=== PATIENT | female | born 1960 | race Caucasian/White ===

== ENCOUNTER 2018-02-16 17:42 | Emergency (ER) | payer BC, OTHER ==
[2018-02-16 18:15] VITALS: BP 140/66
--- NOTE | 2018-02-16 19:02 | EDM.PDOC ---
ED HPI GENERAL MEDICAL PROBLEM - General Chief Complaint: ENT Problem Stated Complaint: THRUSH IN MOUTH AND RASH ON BODY Time Seen by Provider: 02/16/18 19:01 Source of Information: Reports: Patient History Limitations: Reports: No Limitations - History of Present Illness INITIAL COMMENTS - FREE TEXT/NARRATIVE: HISTORY AND PHYSICAL: History of present illness: 57-year-old female presenting to the emergency room with chief complaint of rash and sore throat. Patient states that today she woke up with a sore throat and rash. She does mention that her granddaughter has roseola but did not think that she could get this from her. She currently denies any chest pain, palpitations, shortness breath, syncopal episodes, or focal neurologic episodes. Review of systems: As per history of present illness and below otherwise all systems reviewed and negative. Past medical history: As per history of present illness and as reviewed below otherwise noncontributory. Surgical history: As per history of present illness and as reviewed below otherwise noncontributory. Social history: No reported history of drug or alcohol abuse. Family history: As per history of present illness and as reviewed below otherwise noncontributory. Physical exam: HEENT: Atraumatic, normocephalic, pupils reactive, negative for conjunctival pallor or scleral icterus, mucous membranes moist, throat clear, neck supple, nontender, trachea midline. Lungs: Clear to auscultation, breath sounds equal bilaterally, chest nontender. Heart: S1S2, regular, negative for clicks, rubs, or JVD. Abdomen: Soft, nondistended, nontender. Negative for masses or hepatosplenomegaly. Negative for costovertebral tenderness. Pelvis: Stable nontender. Genitourinary: Deferred. Rectal: Deferred. Extremities: Atraumatic, negative for cords or calf pain. Neurovascular unremarkable. Neuro: Awake, alert, oriented. Cranial nerves II through XII unremarkable. Cerebellum unremarkable. Motor and sensory unremarkable throughout. Exam nonfocal. Diagnostics: Rapid strep Therapeutics: [] Impression: Roseola Plan: Talked with patient that she most likely has Roseola like her Grand daughter and should follow up with her PCP Dr. Rios. Definitive disposition and diagnosis as appropriate pending reevaluation and review of above. mouth Pain Score (Numeric/FACES): 5 - Related Data Allergies Allergy/AdvReac Type Severity Reaction Status Date / Time No Known Allergies Allergy Verified 02/16/18 18:15 Home Meds: Home Meds Allopurinol 300 mg PO DAILY 10/03/15 [History] Ascorbic Acid [Vitamin C] 1,000 mg PO DAILY 10/03/15 [History] Cholecalciferol (Vitamin D3) [Vitamin D3] 2,000 unit PO DAILY 10/03/15 [History] DULoxetine [Cymbalta] 60 mg PO DAILY 10/03/15 [History] Hydrochlorothiazide 25 mg PO DAILY 10/03/15 [History] Iron 18 mg PO DAILY 10/03/15 [History] Labetalol HCl [Labetalol] 100 mg PO DAILY 10/03/15 [History] Multivit-Min/Folic Acid/Vit K1 [Multi For Her 50 Plus Softgel] 1 each PO DAILY 10/03/15 [History] [place]-3/DHA/Epa/Fish Oil [Fish Oil] 500 mg PO DAILY 10/03/15 [History] Potassium Citrate [Potassium Citrate ER] 15 meq PO DAILY 10/03/15 [History] Furosemide [Lasix] 80 mg PO DAILY 02/16/18 [History] Levothyroxine 75 mcg PO ACBREAKFAST 02/16/18 [History] Silver Sulfadiazine 50 gm TP ASDIRECTED 02/16/18 [History] Turmeric Root Extract [Turmeric] 500 mg PO DAILY 02/16/18 [History] buPROPion HCl [Wellbutrin Xl] 300 mg PO DAILY 02/16/18 [History] oxyCODONE ER [OxyCONTIN] 10 mg PO ASDIRECTED 02/16/18 [History] Past Medical History Cardiovascular History: Reports: Hypertension Gastrointestinal History: Reports: Other (See Below) Other Gastrointestinal History: gastric bypass MEDICAL DEVICE ENGINEER History: Reports: , Other (See Below) Other MEDICAL DEVICE ENGINEER History: c-sections Psychiatric History: Reports: Anxiety, Depression Endocrine/Metabolic History: Reports: Hypothyroidism - Infectious Disease History Infectious Disease History: Reports: Chicken Pox, Shingles Social & Family History - Tobacco Use Smoking Status *Q: Never Smoker - Caffeine Use Caffeine Use: Reports: Tea - Recreational Drug Use Recreational Drug Use: No ED ROS GENERAL - Review of Systems Review Of Systems: ROS reveals no pertinent complaints other than HPI. ED EXAM, GENERAL - Physical Exam Exam: See Below Course - Vital Signs Last Recorded V/S: Last Vital Signs Temp 98.3 F 02/16/18 18:13 Pulse 88 02/16/18 18:13 Resp 16 02/16/18 18:13 BP 140/66 02/16/18 18:13 Pulse Ox 98 02/16/18 18:13 - Orders/Labs/Meds Orders: Active Orders 24 hr Category Date Time Status CULTURE STREP A CONFIRMATION [RM] Stat Lab 02/16/18 19:05 Results STREP SCRN A RAPID W CULT CONF [RM] Stat Lab 02/16/18 19:05 Ordered Departure - Departure Time of Disposition: 19:37 Disposition: Home, Self-Care 01 Condition: Good Clinical Impression: Roseola - Discharge Information Referrals: PCP,None [Primary Care Provider] - Forms: ED Department Discharge Additional Instructions: My general discharge The following information is given to patients seen in the emergency department who are being discharged to home. This information is to outline your options for follow-up care. We provide all patients seen in our emergency department with a follow-up referral. The need for follow-up, as well as the timing and circumstances, are variable depending upon the specifics of your emergency department visit. If you don't have a primary care physician on staff, we will provide you with a referral. We always advise you to contact your personal physician following an emergency department visit to inform them of the circumstance of the visit and for follow-up with them and/or the need for any referrals to a consulting specialist. The emergency department will also refer you to a specialist when appropriate. This referral assures that you have the opportunity for follow-up care with a specialist. All of these measure are taken in an effort to provide you with optimal care, which includes your follow-up. Under all circumstances we always encourage you to contact your private physician who remains a resource for coordinating your care. When calling for follow-up care, please make the office aware that this follow-up is from your recent emergency room visit. If for any reason you are refused follow-up, please contact the [facility] Emergency Department at and asked to speak to the emergency department charge nurse. Please follow-up with your primary care physician as we discussed. - My Orders Last 24 Hours: My Active Orders 02/16/18 19:05 CULTURE STREP A CONFIRMATION [RM] Stat STREP SCRN A RAPID W CULT CONF [RM] Stat - Assessment/Plan Last 24 Hours: My Active Orders 02/16/18 19:05 CULTURE STREP A CONFIRMATION [RM] Stat STREP SCRN A RAPID W CULT CONF [RM] Stat
== END 2018-02-16 19:49 | disposition home or self-care (01) ==
LOC: MW.ED 17:42
DX: B09 Unspecified viral infection characterized by skin and mucous membrane lesions (principal); I10 Essential (primary) hypertension; Z79.899 Other long term (current) drug therapy
CPT/HCPCS: 87081; 87880-QW; 99282; 99283

== ENCOUNTER 2018-04-10 13:59 | Emergency (ER) | payer MEDICARE, BC ==
[2018-04-10] MEDS ORDERED: Sodium Chloride 0.9% 1,000 ML IV ONE (14:44)
--- NOTE | 2018-04-10 14:44 | EDM.PDOC ---
ED HPI GENERAL MEDICAL PROBLEM - General Chief Complaint: Neuro Symptoms/Deficits Stated Complaint: HALLUCINATIONS Time Seen by Provider: 04/10/18 14:03 Source of Information: Reports: Patient History Limitations: Reports: No Limitations - History of Present Illness INITIAL COMMENTS - FREE TEXT/NARRATIVE: HISTORY AND PHYSICAL: History of present illness: Patient is a 57-year-old female who presents to the emergency room with concerns of visual hallucinations. She states she has been on multiple antibiotics for the treatment of a cellulitis of her left posterior thigh. Approximately 2 weeks ago she started having visual hallucinations intermittently. She did see her primary care provider, Dr. Neal Rios, approximately one week ago. She did inform him of the concerns of hallucinations , he did take her off some of her antibiotics in hopes that this would cease the problem. She states that her symptoms have not improved. States she has felt dehydrated as she has not been eating and drinking as much as she routinely does. She states that these hallucinations are obviously not real, and she can identify. She is seeing dinosaurs in people's yards. She has no previous mental health issues. Denies any drug or alcohol abuse. She denies having any thoughts of self-harm or harming others. She denies any fever, chills, chest pain, shortness of breath or cough. Denies any abdominal pain, nausea, vomiting, diarrhea, constipation or dysuria. Past medical history of hypertension, depression, hypothyroidism and gastric bypass surgery. Review of systems: As per history of present illness and below otherwise all systems reviewed and negative. Past medical history: As per history of present illness and as reviewed below otherwise noncontributory. Surgical history: As per history of present illness and as reviewed below otherwise noncontributory. Social history: No reported history of drug or alcohol abuse. Family history: As per history of present illness and as reviewed below otherwise noncontributory. Physical exam: General: Well developed and morbidly obese 57-year-old female. Alert and oriented. Nontoxic appearing and in no acute distres HEENT: Atraumatic, normocephalic, pupils equal and reactive bilaterally, negative for conjunctival pallor or scleral icterus, mucous membranes moist, throat clear, neck supple, nontender, trachea midline. No drooling or trismus noted. No meningeal signs Lungs: Clear to auscultation, breath sounds equal bilaterally, chest nontender. Heart: S1S2, regular rate and rhythm without overt murmur Abdomen: Soft, obese, nontender. Negative for masses. Negative for costovertebral tenderness. Pelvis: Stable nontender. Genitourinary: Deferred. Rectal: Deferred. Skin: Patient has a yeast infection of the left and right groin involving the mons pubis and pannus flap bilaterally. She does have a pressure ulcer noted to the coccyx area, blanchable. Large cellulitic area to the left posterior thigh with excessively dry skin noted to the area as well. Extremities: Atraumatic, negative for cords or calf pain. Neurovascular unremarkable. Neuro: Awake, alert, oriented. Cranial nerves II through XII unremarkable. Cerebellum unremarkable. Motor and sensory unremarkable throughout. Exam nonfocal. Notes: Patient is wheelchair bound and receives care by her . She has been seeing Dr. Neal Rios for treatment of pressure ulcer to her tailbone, bilateral pannus/groin yeast infection, and cellulitis of the left posterior thigh. She states she has no current concerns about the cellulitis or ulcerated area. Lab work is unremarkable at this time. This information was shared with the patient and family members. I offered admission at this time, she declined. I strongly encouraged them to follow-up with their primary care provider for further evaluation of her current medications in regards to the hallucinations. They voice understanding and are agreeable to plan of care. Denies any further questions or concerns at this time. Diagnostics: CBC, CMP, UA, Ammonia, CXR, Blood Culture, lactic acid Therapeutics: IV fluids Prescription: Impression: Encounter for medical screening exam Hallucinations Plan: 1. Follow-up with your primary care provider for further evaluation of your current medications in regards to your hallucinations. 2. Return to the ED as needed and as discussed. Definitive disposition and diagnosis as appropriate pending reevaluation and review of above. - Related Data Allergies Allergy/AdvReac Type Severity Reaction Status Date / Time No Known Allergies Allergy Verified 04/10/18 14:14 Home Meds: Home Meds Allopurinol 300 mg PO DAILY 10/03/15 [History] Ascorbic Acid [Vitamin C] 1,000 mg PO DAILY 10/03/15 [History] Cholecalciferol (Vitamin D3) [Vitamin D3] 2,000 unit PO DAILY 10/03/15 [History] DULoxetine [Cymbalta] 60 mg PO DAILY 10/03/15 [History] Hydrochlorothiazide 25 mg PO DAILY 10/03/15 [History] Iron 18 mg PO DAILY 10/03/15 [History] Labetalol HCl [Labetalol] 100 mg PO DAILY 10/03/15 [History] Multivit-Min/Folic Acid/Vit K1 [Multi For Her 50 Plus Softgel] 1 each PO DAILY 10/03/15 [History] [place]-3/DHA/Epa/Fish Oil [Fish Oil] 500 mg PO DAILY 10/03/15 [History] Potassium Citrate [Potassium Citrate ER] 15 meq PO DAILY 10/03/15 [History] Furosemide [Lasix] 80 mg PO DAILY 02/16/18 [History] Levothyroxine 75 mcg PO ACBREAKFAST 02/16/18 [History] Silver Sulfadiazine 50 gm TP ASDIRECTED 02/16/18 [History] Turmeric Root Extract [Turmeric] 500 mg PO DAILY 02/16/18 [History] buPROPion HCl [Wellbutrin Xl] 300 mg PO DAILY 02/16/18 [History] oxyCODONE ER [OxyCONTIN] 10 mg PO ASDIRECTED 02/16/18 [History] Cephalexin [Keflex] 1 tab PO QID 04/10/18 [History] Past Medical History Cardiovascular History: Reports: Hypertension Gastrointestinal History: Reports: Other (See Below) Other Gastrointestinal History: gastric bypass SPARE HAND History: Reports: , Other (See Below) Other SPARE HAND History: c-sections Musculoskeletal History: Reports: Arthritis, Gout Psychiatric History: Reports: Anxiety, Depression Endocrine/Metabolic History: Reports: Hypothyroidism Dermatologic History: Reports: Cellulitis - Infectious Disease History Infectious Disease History: Reports: MRSA Social & Family History - Family History Family Medical History: Unobtainable - Tobacco Use Smoking Status *Q: Never Smoker Second Hand Smoke Exposure: No - Caffeine Use Caffeine Use: Reports: Soda - Recreational Drug Use Recreational Drug Use: No ED ROS GENERAL - Review of Systems Review Of Systems: ROS reveals no pertinent complaints other than HPI. ED EXAM, GENERAL - Physical Exam Exam: See Below (See dictation) Course - Vital Signs Last Recorded V/S: Last Vital Signs Temp 97.6 F 04/10/18 14:09 Pulse 82 04/10/18 14:09 Resp 18 04/10/18 14:09 BP 172/84 H 04/10/18 14:09 Pulse Ox 96 04/10/18 14:09 - Orders/Labs/Meds Orders: Active Orders 24 hr Category Date Time Status Chest 1V Frontal [CR] Stat Exams 04/10/18 14:37 Taken CULTURE BLOOD [BC] Stat Lab 04/10/18 15:20 Received CULTURE BLOOD [BC] Stat Lab 04/10/18 15:55 Received CULTURE WOUND [RM] Stat Lab 04/10/18 15:15 Received UA W/MICROSCOPIC [URIN] Stat Lab 04/10/18 14:37 Ordered Blood Culture x2 Reflex Set [OM.PC] Stat Oth 04/10/18 14:37 Ordered Labs: Laboratory Tests 04/10/18 04/10/18 04/10/18 Range/Units 15:20 15:20 15:20 WBC 8.76 (4.0-11.0) K/uL RBC 3.97 L (4.30-5.90) M/uL Hgb 12.0 (12.0-16.0) g/dL Hct 36.6 (36.0-46.0) % MCV 92.2 (80.0-98.0) fL MCH 30.2 (27.0-32.0) pg MCHC 32.8 (31.0-37.0) g/dL RDW Std Deviation 47.7 (28.0-62.0) fl RDW Coeff of Serena 14 (11.0-15.0) % Plt Count 240 (150-400) K/uL MPV 9.80 (7.40-12.00) fL Neut % (Auto) 73.4 (48.0-80.0) % Lymph % (Auto) 14.2 L (16.0-40.0) % [place] % (Auto) 10.0 (0.0-15.0) % Eos % (Auto) 2.3 (0.0-7.0) % Baso % (Auto) 0.1 (0.0-1.5) % Neut # (Auto) 6.4 H (1.4-5.7) K/uL Lymph # (Auto) 1.2 (0.6-2.4) K/uL [place] # (Auto) 0.9 H (0.0-0.8) K/uL Eos # (Auto) 0.2 (0.0-0.7) K/uL Baso # (Auto) 0.0 (0.0-0.1) K/uL Nucleated RBC % 0.0 /100WBC Nucleated RBCs # 0 K/uL Lactate 1.1 (0.20-2.00) mmol/L Sodium 139 (136-145) mmol/L Potassium 3.8 (3.5-5.1) mmol/L Chloride 101 (98-107) mmol/L Carbon Dioxide 29.6 (21.0-32.0) mmol/L BUN 10 (7.0-18.0) mg/dL Creatinine 0.7 (0.6-1.0) mg/dL Est Cr Clr Drug Dosing 64.46 mL/min Estimated GFR (MDRD) > 60.0 ml/min Glucose 105 (74-106) mg/dL Calcium 9.3 (8.5-10.1) mg/dL Total Bilirubin 0.8 (0.2-1.0) mg/dL AST 23 (15-37) IU/L ALT 11 L (14-63) IU/L Alkaline Phosphatase 79 (46-116) U/L Ammonia (19-54) ug/dL Total Protein 7.1 (6.4-8.2) g/dL Albumin 3.3 L (3.4-5.0) g/dL Globulin 3.8 H (2.0-3.5) g/dL Albumin/Globulin Ratio 0.9 L (1.3-2.8) 04/10/18 Range/Units 15:20 WBC (4.0-11.0) K/uL RBC (4.30-5.90) M/uL Hgb (12.0-16.0) g/dL Hct (36.0-46.0) % MCV (80.0-98.0) fL MCH (27.0-32.0) pg MCHC (31.0-37.0) g/dL RDW Std Deviation (28.0-62.0) fl RDW Coeff of Serena (11.0-15.0) % Plt Count (150-400) K/uL MPV (7.40-12.00) fL Neut % (Auto) (48.0-80.0) % Lymph % (Auto) (16.0-40.0) % [place] % (Auto) (0.0-15.0) % Eos % (Auto) (0.0-7.0) % Baso % (Auto) (0.0-1.5) % Neut # (Auto) (1.4-5.7) K/uL Lymph # (Auto) (0.6-2.4) K/uL [place] # (Auto) (0.0-0.8) K/uL Eos # (Auto) (0.0-0.7) K/uL Baso # (Auto) (0.0-0.1) K/uL Nucleated RBC % /100WBC Nucleated RBCs # K/uL Lactate (0.20-2.00) mmol/L Sodium (136-145) mmol/L Potassium (3.5-5.1) mmol/L Chloride (98-107) mmol/L Carbon Dioxide (21.0-32.0) mmol/L BUN (7.0-18.0) mg/dL Creatinine (0.6-1.0) mg/dL Est Cr Clr Drug Dosing mL/min Estimated GFR (MDRD) ml/min Glucose (74-106) mg/dL Calcium (8.5-10.1) mg/dL Total Bilirubin (0.2-1.0) mg/dL AST (15-37) IU/L ALT (14-63) IU/L Alkaline Phosphatase (46-116) U/L Ammonia 25 (19-54) ug/dL Total Protein (6.4-8.2) g/dL Albumin (3.4-5.0) g/dL Globulin (2.0-3.5) g/dL Albumin/Globulin Ratio (1.3-2.8) Meds: Medications Discontinued Medications Generic Name Dose Route Start Last Admin Trade Name Freq PRN Reason Stop Dose Admin Sodium Chloride 1,000 mls @ 999 mls/hr 04/10/18 14:44 04/10/18 15:25 Normal Saline IV 04/10/18 15:44 999 mls/hr STAT ONE Administration Departure - Departure Time of Disposition: 17:40 Disposition: Home, Self-Care 01 Clinical Impression: Encounter for medical screening examination, Hallucinations, visual - Discharge Information Referrals: Neal Rios MD [Primary Care Provider] - Forms: ED Department Discharge Additional Instructions: The following information is given to patients seen in the emergency department who are being discharged to home. This information is to outline your options for follow-up care. We provide all patients seen in our emergency department with a follow-up referral. The need for follow-up, as well as the timing and circumstances, are variable depending upon the specifics of your emergency department visit. If you don't have a primary care physician on staff, we will provide you with a referral. We always advise you to contact your personal physician following an emergency department visit to inform them of the circumstance of the visit and for follow-up with them and/or the need for any referrals to a consulting specialist. The emergency department will also refer you to a specialist when appropriate. This referral assures that you have the opportunity for follow-up care with a specialist. All of these measure are taken in an effort to provide you with optimal care, which includes your follow-up. Under all circumstances we always encourage you to contact your private physician who remains a resource for coordinating your care. When calling for follow-up care, please make the office aware that this follow-up is from your recent emergency room visit. If for any reason you are refused follow-up, please contact the [facility] Emergency Department at and asked to speak to the emergency department charge nurse. [facility] [address] [place] [address] [place] [address] 1. Follow-up with your primary care provider for further evaluation of your current medications in regards to your hallucinations. 2. Return to the ED as needed and as discussed. - My Orders Last 24 Hours: My Active Orders 04/10/18 14:37 Chest 1V Frontal [CR] Stat UA W/MICROSCOPIC [URIN] Stat Blood Culture x2 Reflex Set [OM.PC] Stat 04/10/18 15:15 CULTURE WOUND [RM] Stat 04/10/18 15:20 CULTURE BLOOD [BC] Stat 04/10/18 15:55 CULTURE BLOOD [BC] Stat - Assessment/Plan Last 24 Hours: My Active Orders 04/10/18 14:37 Chest 1V Frontal [CR] Stat UA W/MICROSCOPIC [URIN] Stat Blood Culture x2 Reflex Set [OM.PC] Stat 04/10/18 15:15 CULTURE WOUND [RM] Stat 04/10/18 15:20 CULTURE BLOOD [BC] Stat 04/10/18 15:55 CULTURE BLOOD [BC] Stat
[2018-04-10 15:59] LABS: CHLORIDE,CL 101 mmol/L (98-107); SODIUM,NA 139 mmol/L (136-145)
[2018-04-10 18:08] VITALS: BP 183/87
--- NOTE | 2018-04-11 10:57 | CR ---
EXAM DATE: 04/10/18 PATIENT'S AGE: 57 Patient: ALLAN BAEZ Facility: [place], [place] Site . Site : [id number] Study: XRay Chest [id number] 4:48:47 PM Ordering Physician: Doctor Gautam Final Report: INDICATION: Hallucinations TECHNIQUE: Chest 1 view. COMPARISON: None FINDINGS: Cardiovascular and mediastinum: Heart size and vasculature are normal in caliber and appearance. Mediastinum is within normal limits. Lungs and pleural space: Low lung volumes. Lungs are clear. No sign of infiltrate or mass. No sign of pleural effusion. No pneumothorax. Bones and soft tissues: No significant findings. IMPRESSION: Low lung volumes. No gross acute pulmonary or cardiac abnormalities. Dictated by Erick Hayden MD @ 04/10/2018 5:19:47 PM Dictated by: Erick Hayden MD @ 04/10/2018 17:19:51 (Electronic Signature) Report Signed by Proxy. [facility] SYSTEMDarcie
== END 2018-04-10 18:00 | disposition home or self-care (01) ==
LOC: MW.ED 13:59
DX: R44.1 Visual hallucinations (principal); I10 Essential (primary) hypertension; Z79.899 Other long term (current) drug therapy
CPT/HCPCS: 36415; 71045; 80053; 82140; 83605; 85025; 87040; 87070; 96360; 99285; J7040

== ENCOUNTER 2022-09-04 03:46 | Emergency (ER) | payer MEDICARE ==
[2022-09-04 04:51] LABS: CORONAVIRUS COVID-19 NAA POSITIVE (NEGATIVE); INFLUENZA A NAA NEGATIVE (NEGATIVE); INFLUENZA B NAA NEGATIVE (NEGATIVE)
[2022-09-04] MEDS ORDERED: Dexamethasone 10 MG/ML SDV IVPUSH ONE (04:53)
[2022-09-04 05:13] LABS: CARBON DIOXIDE,CO2 28.4 mmol/L (21.0-32.0); POTASSIUM,K 4.6 mmol/L (3.5-5.1)
[2022-09-04] MEDS ORDERED: Aspirin 81 MG Tab.Chew PO ONE (06:49)
[2022-09-04] MEDS ORDERED: Enoxaparin 150 MG/1 ML Syringe SUBCUT ONE (06:50)
[2022-09-04 12:49] VITALS: BP 158/93; PULSE 101
== END 2022-09-04 13:33 ==
LOC: MW.ED 03:46
DX: U07.1 COVID-19 (principal); E66.01 Morbid (severe) obesity due to excess calories; I10 Essential (primary) hypertension; E03.9 Hypothyroidism, unspecified; M10.9 Gout, unspecified; Z79.899 Other long term (current) drug therapy; Z68.45 Body mass index [BMI] 70 or greater, adult
CPT/HCPCS: 0240U; 36415; 71045; 80053; 80305; 81003; 82803; 83880; 84484; 85025; 86140; 93005; 96372; 96374; 99285; A9270; J1100; J1650

== ENCOUNTER 2022-11-08 19:03 | Emergency (ER) | payer MEDICARE ==
[2022-11-08] MEDS ORDERED: Sodium Chloride 0.9% 10 ML Syringe FLUSH PRN (23:03)
[2022-11-08] MEDS ORDERED: Sodium Chloride 0.9% 2.5 ML Syringe FLUSH PRN (23:03)
[2022-11-09 01:06] LABS: CARBON DIOXIDE,CO2 26.7 mmol/L (21.0-32.0); POTASSIUM,K 4.2 mmol/L (3.5-5.1)
[2022-11-09] MEDS ORDERED: Sodium Chloride 0.9% 1,000 ML IV ONE ×2 (01:16)
[2022-11-09 05:03] VITALS: BP 126/57; PULSE 67
== END 2022-11-09 05:03 | disposition home or self-care (01) ==
LOC: MW.ED 19:03
DX: I95.9 Hypotension, unspecified (principal); E86.0 Dehydration; I10 Essential (primary) hypertension; E03.9 Hypothyroidism, unspecified; Z79.899 Other long term (current) drug therapy
CPT/HCPCS: 36415; 80053; 81003; 85025; 96360; 96361; 99284; 99284-25; J3490; J7030

== ENCOUNTER 2022-12-20 09:09 | Emergency (ER) | payer MEDICARE ==
[2022-12-20] MEDS ORDERED: Sodium Chloride 0.9% 2.5 ML Syringe FLUSH PRN (10:15)
[2022-12-20] MEDS ORDERED: Sodium Chloride 0.9% 10 ML Syringe FLUSH PRN (10:15)
[2022-12-20 11:08] LABS: BASOPHILS PERCENT AUTO 0.3 % (0.0-1.5); EOSINOPHILS ABSOLUTE AUTO 0.4 K/uL (0.0-0.7); EOSINOPHILS PERCENT AUTO 3.8 % (0.0-7.0); HEMATOCRIT 37.3 % (36.0-46.0); HEMOGLOBIN 11.9 g/dL (12.0-16.0); LYMPHOCYTES ABSOLUTE AUTO 1.4 K/uL (0.6-2.4); LYMPHOCYTES PERCENT AUTO 14.8 % (16.0-40.0); MEAN CORPUSCULAR HEMOGLOBIN 31.1 pg (27.0-32.0); MEAN CORPUSCULAR HGB CONC 31.9 g/dL (31.0-37.0); MEAN CORPUSCULAR VOLUME 97.4 fL (80.0-98.0); MONOCYTES ABSOLUTE AUTO 0.8 K/uL (0.0-0.8); MONOCYTES PERCENT AUTO 8.8 % (0.0-15.0); NEUTROPHILS ABSOLUTE AUTO 6.8 K/uL (1.4-5.7); NEUTROPHILS PERCENT AUTO 72.3 % (48.0-80.0); NRBC ABSOLUTE 0 K/uL; PLATELET COUNT,PLT 202 K/uL (150-400); RED BLOOD CELL COUNT 3.83 M/uL (4.30-5.90); WHITE BLOOD CELL COUNT,WBC 9.45 K/uL (4.0-11.0)
[2022-12-20 11:40] LABS: A/G RATIO 0.6 (0.9-1.6); ALBUMIN 2.9 g/dL (3.4-5.0); BILIRUBIN TOTAL 0.6 mg/dL (0.2-1.0); CALCIUM 9.4 mg/dL (8.5-10.1); CREATININE 0.7 mg/dL (0.6-1.0); EST CRCL DRUG DOSING (CG) 60.62 mL/min; POTASSIUM,K 3.8 mmol/L (3.5-5.1); PROTEIN TOTAL,TP 7.5 g/dL (6.4-8.2)
[2022-12-20 12:13] VITALS: BP 164/65; PULSE 87
== END 2022-12-20 11:53 | disposition home or self-care (01) ==
LOC: MW.ED 09:09
DX: R06.02 Shortness of breath (principal); R05.9 Cough, unspecified; R53.83 Other fatigue; I11.0 Hypertensive heart disease with heart failure; I50.9 Heart failure, unspecified; E03.9 Hypothyroidism, unspecified; Z79.899 Other long term (current) drug therapy; Z86.16 Personal history of COVID-19
CPT/HCPCS: 36415; 71045; 71045-26; 80053; 84484; 85025; 93005; 99285

== ENCOUNTER 2023-05-14 14:50 | Emergency (ER) | payer MEDICARE, OTHER ==
[2023-05-14] MEDS ORDERED: Sodium Chloride 0.9% 2.5 ML Syringe FLUSH PRN (15:43)
[2023-05-14] MEDS ORDERED: Sodium Chloride 0.9% 10 ML Syringe FLUSH PRN (15:43)
[2023-05-14 15:48] VITALS: BP 158/62
[2023-05-14] MEDS ORDERED: Albuterol/Ipratropium 3.0-0.5 MG/3 ML Neb Soln NEB ONE (15:57)
[2023-05-14 16:22] LABS: BASOPHILS ABSOLUTE AUTO 0.04 K/uL (0.00-0.20); BASOPHILS PERCENT AUTO 0.4 % (0.0-1.0); EOSINOPHILS ABSOLUTE AUTO 0.31 K/uL (0.00-0.45); EOSINOPHILS PERCENT AUTO 3.5 % (0.0-6.0); HEMATOCRIT 36.8 % (37.0-47.0); HEMOGLOBIN 12.3 g/dL (12.0-16.0); IMMATURE GRAN ABSOLUTE AUTO 0.03 K/uL (0.00-0.05); IMMATURE GRAN PERCENT AUTO 0.3 % (0.0-0.4); LYMPHOCYTES ABSOLUTE AUTO 0.94 K/uL (1.00-4.80); LYMPHOCYTES PERCENT AUTO 10.5 % (24.0-44.0); MEAN CORPUSCULAR HEMOGLOBIN 30.7 pg (28.0-32.0); MEAN CORPUSCULAR HGB CONC 33.4 g/dL (32.0-36.0); MEAN CORPUSCULAR VOLUME 91.8 fL (83.0-99.0); MEAN PLATELET VOLUME 9.3 fL (9.4-12.3); MONOCYTES ABSOLUTE AUTO 0.69 K/uL (0.00-0.80); MONOCYTES PERCENT AUTO 7.7 % (0.0-8.0); NEUTROPHILS ABSOLUTE AUTO 6.95 K/uL (1.80-7.70); NEUTROPHILS PERCENT AUTO 77.6 % (41.0-71.0); PLATELET COUNT,PLT 175 K/uL (150-400); RED BLOOD CELL COUNT 4.01 M/uL (4.10-5.30); WHITE BLOOD CELL COUNT,WBC 8.96 K/uL (3.9-11.3)
[2023-05-14 16:39] LABS: INR 1.11 (0.86-1.11); PTT,PARTIAL THROMBOPLSTIN TIME 38.6 SEC (23.9-30.7)
[2023-05-14 16:58] LABS: A/G RATIO 0.7 (0.9-1.6); ALBUMIN 3.1 g/dL (3.4-5.0); BILIRUBIN TOTAL 0.5 mg/dL (0.2-1.0); CALCIUM 9.4 mg/dL (8.5-10.1); CARBON DIOXIDE,CO2 29.6 mmol/L (21.0-32.0); CREATININE 0.7 mg/dL (0.6-1.0); EST CRCL DRUG DOSING (CG) 60.62 mL/min; POTASSIUM,K 4.2 mmol/L (3.5-5.1); PROTEIN TOTAL,TP 7.8 g/dL (6.4-8.2)
[2023-05-14 17:44] LABS: CORONAVIRUS COVID-19 NAA NEGATIVE (NEGATIVE); INFLUENZA A NAA NEGATIVE (NEGATIVE); INFLUENZA B NAA NEGATIVE (NEGATIVE)
[2023-05-14 18:22] VITALS: PULSE 97
== END 2023-05-14 18:22 | disposition home or self-care (01) ==
LOC: MW.ED 14:50
DX: B34.9 Viral infection, unspecified (principal); I11.0 Hypertensive heart disease with heart failure; I50.9 Heart failure, unspecified; E03.9 Hypothyroidism, unspecified; Z20.822 Contact with and (suspected) exposure to COVID-19; Z79.899 Other long term (current) drug therapy
CPT/HCPCS: 0240U; 36415; 71045; 80053; 83880; 84484; 85025; 85379; 85610; 85730; 93005; 94640; 99285; J3490; 93010; 99283; J7620-GY

== ENCOUNTER 2023-05-16 07:31 | Emergency (ER) | payer MEDICARE, OTHER ==
[2023-05-16] MEDS ORDERED: Albuterol/Ipratropium 3.0-0.5 MG/3 ML Neb Soln NEB ONE ×2 (07:32→12:40)
[2023-05-16] MEDS ORDERED: methylPREDNISolone Sodium Succinate 125 MG/2 ML SDV IVPUSH ONE (07:32)
[2023-05-16 08:25] LABS: BASOPHILS ABSOLUTE AUTO 0.04 K/uL (0.00-0.20); BASOPHILS PERCENT AUTO 0.5 % (0.0-1.0); EOSINOPHILS ABSOLUTE AUTO 0.28 K/uL (0.00-0.45); EOSINOPHILS PERCENT AUTO 3.5 % (0.0-6.0); HEMOGLOBIN 11.6 g/dL (12.0-16.0); IMMATURE GRAN ABSOLUTE AUTO 0.01 K/uL (0.00-0.05); IMMATURE GRAN PERCENT AUTO 0.1 % (0.0-0.4); LYMPHOCYTES ABSOLUTE AUTO 1.26 K/uL (1.00-4.80); MEAN CORPUSCULAR HEMOGLOBIN 30.8 pg (28.0-32.0); MEAN CORPUSCULAR HGB CONC 33.1 g/dL (32.0-36.0); MEAN CORPUSCULAR VOLUME 92.8 fL (83.0-99.0); MEAN PLATELET VOLUME 9.1 fL (9.4-12.3); MONOCYTES ABSOLUTE AUTO 1.06 K/uL (0.00-0.80); MONOCYTES PERCENT AUTO 13.4 % (0.0-8.0); NEUTROPHILS ABSOLUTE AUTO 5.24 K/uL (1.80-7.70); NEUTROPHILS PERCENT AUTO 66.5 % (41.0-71.0); PLATELET COUNT,PLT 162 K/uL (150-400); RED BLOOD CELL COUNT 3.77 M/uL (4.10-5.30); WHITE BLOOD CELL COUNT,WBC 7.89 K/uL (3.9-11.3)
[2023-05-16 08:29] LABS: BASE EXCESS VENOUS 3.8 (-2.0-3.0); PH,VENOUS 7.32 (7.31-7.41)
[2023-05-16 08:42] LABS: CORONAVIRUS COVID-19 NAA NEGATIVE (NEGATIVE); INFLUENZA A NAA NEGATIVE (NEGATIVE); INFLUENZA B NAA NEGATIVE (NEGATIVE)
[2023-05-16] MEDS ORDERED: cefTRIAXone 1 GM in Sodium Chloride 0.9% 50 ML IV ONE (08:49)
[2023-05-16] MEDS ORDERED: Furosemide 40 MG/4 ML VIAL IVPUSH ONE (08:49)
[2023-05-16] MEDS ORDERED: Azithromycin 500 MG in Sodium Chloride 0.9% 250 ML IV ONE (08:49)
[2023-05-16 09:10] LABS: A/G RATIO 0.6 (0.9-1.6); ALBUMIN 2.8 g/dL (3.4-5.0); BILIRUBIN TOTAL 0.3 mg/dL (0.2-1.0); C-REACTIVE PROTEIN 7.87 mg/dL (<0.3); CALCIUM 9.1 mg/dL (8.5-10.1); CARBON DIOXIDE,CO2 32.8 mmol/L (21.0-32.0); CREATININE 0.7 mg/dL (0.6-1.0); EST CRCL DRUG DOSING (CG) 60.62 mL/min; MAGNESIUM 1.6 mg/dL (1.8-2.4); POTASSIUM,K 3.8 mmol/L (3.5-5.1); PROTEIN TOTAL,TP 7.2 g/dL (6.4-8.2)
[2023-05-16 10:48] LABS: APPEARANCE,URINE CLEAR; BILIRUBIN,URINE NEGATIVE (NEGATIVE); COLOR,URINE YELLOW; GLUCOSE,URINE NEGATIVE (NEGATIVE); KETONES,URINE NEGATIVE (NEGATIVE); LEUKOCYTE ESTERASE,URINE NEGATIVE (NEGATIVE); NITRITE,URINE NEGATIVE (NEGATIVE); OCCULT BLOOD,URINE NEGATIVE (NEGATIVE); PROTEIN,URINE NEGATIVE (NEGATIVE); UROBILINOGEN,URINE 0.2 EU/dL (<2.0)
[2023-05-16 14:11] VITALS: BP 125/82; PULSE 92
== END 2023-05-16 14:09 | disposition home or self-care (01) ==
LOC: MW.ED 07:31
DX: J44.1 Chronic obstructive pulmonary disease with (acute) exacerbation (principal); I11.0 Hypertensive heart disease with heart failure; I50.9 Heart failure, unspecified; E03.9 Hypothyroidism, unspecified; Z20.822 Contact with and (suspected) exposure to COVID-19; Z86.16 Personal history of COVID-19; Z79.899 Other long term (current) drug therapy; Z88.1 Allergy status to other antibiotic agents; Z88.8 Allergy status to other drugs, medicaments and biological substances
CPT/HCPCS: 0240U; 36415; 71045; 80053; 81003; 82803; 83735; 83880; 84484; 85025; 86140; 93005; 96365; 96367; 96375; 99285; J0456; J0696; J1940; J2930; J3490; J7050; 93010; 99284; J7620-GY

== ENCOUNTER 2023-05-27 04:46 | Emergency (ER) | payer MEDICARE ==
[2023-05-27] MEDS ORDERED: Albuterol/Ipratropium 3.0-0.5 MG/3 ML Neb Soln NEB ONE (04:49)
[2023-05-27] MEDS ORDERED: Sodium Chloride 0.9% 2.5 ML Syringe FLUSH PRN (04:49)
[2023-05-27] MEDS ORDERED: methylPREDNISolone Sodium Succinate 40 MG/1 ML SDV IVPUSH ONE (04:49)
[2023-05-27] MEDS ORDERED: Sodium Chloride 0.9% 10 ML Syringe FLUSH PRN (04:49)
[2023-05-27] MEDS ORDERED: Furosemide 40 MG/4 ML VIAL IVPUSH ONE (04:50)
[2023-05-27] MEDS ORDERED: cefTRIAXone 2 GM in Sodium Chloride 0.9% 50 ML IV ONE (04:52)
[2023-05-27 05:01] LABS: BASOPHILS ABSOLUTE AUTO 0.05 K/uL (0.00-0.20); BASOPHILS PERCENT AUTO 0.3 % (0.0-1.0); EOSINOPHILS ABSOLUTE AUTO 0.39 K/uL (0.00-0.45); HEMATOCRIT 42.5 % (37.0-47.0); HEMOGLOBIN 13.4 g/dL (12.0-16.0); IMMATURE GRAN ABSOLUTE AUTO 0.07 K/uL (0.00-0.05); IMMATURE GRAN PERCENT AUTO 0.4 % (0.0-0.4); LYMPHOCYTES ABSOLUTE AUTO 4.52 K/uL (1.00-4.80); LYMPHOCYTES PERCENT AUTO 23.2 % (24.0-44.0); MEAN CORPUSCULAR HEMOGLOBIN 30.2 pg (28.0-32.0); MEAN CORPUSCULAR HGB CONC 31.5 g/dL (32.0-36.0); MEAN CORPUSCULAR VOLUME 95.7 fL (83.0-99.0); MEAN PLATELET VOLUME 8.8 fL (9.4-12.3); MONOCYTES ABSOLUTE AUTO 1.34 K/uL (0.00-0.80); MONOCYTES PERCENT AUTO 6.9 % (0.0-8.0); NEUTROPHILS ABSOLUTE AUTO 13.13 K/uL (1.80-7.70); NEUTROPHILS PERCENT AUTO 67.2 % (41.0-71.0); PLATELET COUNT,PLT 306 K/uL (150-400); RED BLOOD CELL COUNT 4.44 M/uL (4.10-5.30)
[2023-05-27] MEDS ORDERED: Etomidate 2 MG/ML 10 ML SDV ONE (05:02)
[2023-05-27] MEDS ORDERED: Ketamine 500 mg/10 ML MDV ONE (05:02)
[2023-05-27 05:14] LABS: INR 1.1 (0.86-1.11)
[2023-05-27 05:25] LABS: A/G RATIO 0.7 (0.9-1.6); ALANINE AMINOTRANSFERASE,ALT 58 IU/L (14-63); ALBUMIN 3.1 g/dL (3.4-5.0); ALKALINE PHOSPHATASE 102 U/L (46-116); ASPARTATE AMNIOTRANSFERASE,AST 46 IU/L (15-37); BILIRUBIN TOTAL 0.4 mg/dL (0.2-1.0); BLOOD UREA NITROGEN,BUN 22 mg/dL (7.0-18.0); CALCIUM 9.1 mg/dL (8.5-10.1); CARBON DIOXIDE,CO2 35.4 mmol/L (21.0-32.0); CHLORIDE,CL 103 mmol/L (98-107); CREATININE 0.8 mg/dL (0.6-1.0); ESTIMATED GFR 84 mL/min (>60); GLUCOSE RANDOM 216 mg/dL (74-106); LIPASE 28 U/L (16-77); POTASSIUM,K 4.9 mmol/L (3.5-5.1); PROTEIN TOTAL,TP 7.7 g/dL (6.4-8.2); SODIUM,NA 141 mmol/L (136-145)
[2023-05-27] MEDS ORDERED: propofoL 100 ML ONE (05:35)
[2023-05-27] MEDS ORDERED: Rocuronium 50 MG/5 ML Vial IV STA (05:40)
[2023-05-27] MEDS ORDERED: Ketamine 500 mg/10 ML MDV IV ONE (05:41)
[2023-05-27] MEDS ORDERED: Azithromycin 500 MG in Sodium Chloride 0.9% 250 ML IV ONE (05:47)
[2023-05-27] MEDS ORDERED: Heparin Sodium/0.45% NaCl 500 ML IV SCH (06:00)
[2023-05-27] MEDS ORDERED: Heparin Sodium 5,000 Units/ML Vial IVPUSH ONE (06:05)
[2023-05-27] MEDS ORDERED: Sodium Chloride 0.9% 500 ML IV SCH (06:15)
[2023-05-27] MEDS ORDERED: Benzocaine 20% Topical Spray UD MUCMEM ONE (06:25)
[2023-05-27] MEDS ORDERED: propofoL 100 ML IV SCH (06:30)
[2023-05-27] MEDS ORDERED: VANCOmycin 2 GM/400 ML 2 GM in Premix Bag 1 BAG IV ONE (06:30)
[2023-05-27 06:33] LABS: BASE EXCESS ARTERIAL 1.3 (-2.0-3.0); BICARBONATE,ARTERIAL 28 mEq/L (22-26); PCO2 ARTERIAL 55 mmHG (35-45); PO2 ARTERIAL 140 mmHG (80-105)
[2023-05-27] MEDS ORDERED: Heparin Sodium 5,000 Units/ML Vial IVPUSH STA (06:35)
[2023-05-27 06:46] LABS: BLOOD UREA NITROGEN,BUN 24 mg/dL (7.0-18.0); CARBON DIOXIDE,CO2 30.6 mmol/L (21.0-32.0); CHLORIDE,CL 102 mmol/L (98-107); CREATININE 0.8 mg/dL (0.6-1.0); GLUCOSE RANDOM 234 mg/dL (74-106); POTASSIUM,K 4.3 mmol/L (3.5-5.1); SODIUM,NA 139 mmol/L (136-145)
[2023-05-27] MEDS ORDERED: Sodium Chloride 0.9% 2,000 ML IV ONE (06:46)
[2023-05-27 06:48] LABS: ESTIMATED GFR 84 mL/min (>60); LACTIC ACID 1.5 mmol/L (0.4-2.0)
[2023-05-27 06:53] LABS: AMPHETAMINES SCREEN, URINE NEGATIVE (CUTOFF=500); BARBITURATE SCREEN,URINE NEGATIVE (CUTOFF=200); BENZODIAZEPINES SCREEN,URINE NEGATIVE (CUTOFF=150); BUPRENORPHINE SCREEN,URINE NEGATIVE (CUTOFF=10); METHADONE SCREEN, URINE NEGATIVE (CUTOFF=200); METHAMPHETAMINES SCREEN, URINE NEGATIVE (CUTOFF=500); OXYCODONE SCREEN,URINE NEGATIVE (CUT0FF=100); PCP SCREEN,URINE NEGATIVE (CUTOFF=25); THC SCREEN,URINE 20 NG/ML NEGATIVE (CUTOFF=50)
[2023-05-27 07:29] VITALS: BP 102/61; PULSE 81
[2023-05-27 07:44] LABS: CORONAVIRUS COVID-19 NAA NEGATIVE (NEGATIVE); INFLUENZA A NAA NEGATIVE (NEGATIVE); INFLUENZA B NAA NEGATIVE (NEGATIVE); RESPIRATORY SYNCYTIAL VIR NAA NEGATIVE (NEGATIVE)
[2023-05-27] MEDS ORDERED: fentaNYL/Normal Saline 2,500 MCG in Premix Bag 1 BAG IV PRN (08:32)
== END 2023-05-27 08:25 ==
LOC: MW.ED 04:46
DX: J96.90 Respiratory failure, unspecified, unspecified whether with hypoxia or hypercapnia (principal); E03.9 Hypothyroidism, unspecified; J44.9 Chronic obstructive pulmonary disease, unspecified; I11.0 Hypertensive heart disease with heart failure; I50.9 Heart failure, unspecified; Z86.16 Personal history of COVID-19; Z79.899 Other long term (current) drug therapy; Z88.1 Allergy status to other antibiotic agents; Z91.048 Other nonmedicinal substance allergy status
CPT/HCPCS: 0241U; 31500; 36415; 36600; 43752; 51702; 71045; 74018; 80048; 80053; 80305; 82803; 83605; 83690; 83735; 83880; 84484; 85025; 85610; 85730; 87040; 87077; 87154; 87186; 93005; 94640; 96361; 96365; 96366; 96367; 96368; 96375; 99291; J0456; J0696; J1644; J2704; J2920; J3370; J3490; J7030; J7040; J7050; 93010; 99284; J7620-GY

== ENCOUNTER 2024-08-24 17:09 | Emergency (ER) | payer MEDICARE ==
[2024-08-24] MEDS: Lidocaine 2% Viscous Solution 15 ML UD PO ONE (18:01)
[2024-08-24] MEDS: Acetaminophen/HYDROcodone 325-5 MG Tab PO ONE (18:01)
[2024-08-24] MEDS: Penicillin V Potassium 500 MG Tab PO STA (18:01)
[2024-08-24] MEDS: Benzocaine 20% Topical Spray UD MUCMEM ONE (18:01)
[2024-08-24 18:06] VITALS: BP 168/74; PULSE 80
== END 2024-08-24 18:13 | disposition home or self-care (01) ==
LOC: MW.ED 17:09
DX: K04.7 Periapical abscess without sinus (principal); I11.0 Hypertensive heart disease with heart failure; I50.9 Heart failure, unspecified; E03.9 Hypothyroidism, unspecified; J44.9 Chronic obstructive pulmonary disease, unspecified; Z88.1 Allergy status to other antibiotic agents; Z91.048 Other nonmedicinal substance allergy status; Z79.899 Other long term (current) drug therapy; Z79.02 Long term (current) use of antithrombotics/antiplatelets; Z79.51 Long term (current) use of inhaled steroids; Z79.890 Hormone replacement therapy
CPT/HCPCS: 99283; A9270